=== PATIENT | female | born 1970 | race Caucasian/White ===

== ENCOUNTER 2023-04-25 01:04 | Emergency (ER) | payer MEDICARE, MEDICAID, SELFPAY ==
--- NOTE | ~2023-04-25 | XR_ITS ---
EXAMINATION: XR KNEE, LEFT CLINICAL INFORMATION: Fall, pain COMPARISON: None available. TECHNIQUE: Four views of the left knee. FINDINGS: There is a loss of tricompartment joint space without loose bodies or bony erosive changes. No visible acute fracture or dislocation seen. There is mild medial compartment periarticular spurring. The soft tissues are normal. XR/XR knee LT 4V IMPRESSION: Mild degenerative changes left knee. No visible acute fracture or dislocation seen.
[2023-04-25 01:48] VITALS: BP 122/84; BP 124/82; PULSE 101; PULSE 115; RESP 14; TEMP 36.7; O2SAT 94; O2SAT 95; BMI 20.8
[2023-04-25 06:05] VITALS: BP 128/74; BP 135/77; PULSE 77; RESP 18; TEMP 36.9; O2SAT 99
[2023-04-25 06:37] VITALS: BP 161/93; PULSE 109; TEMP 36.7; O2SAT 95
--- NOTE | 2023-04-25 07:02 | ED.GENADULT ---
HPI - General Adult General Chief complaint: Fall Stated complaint: L KNEE LAC/LEG PAIN S/P FALL, ETOH USE Time Seen by Provider: 04/25/23 06:28 Source: patient, EMS and RN notes reviewed Mode of arrival: EMS Limitations: no limitations History of Present Illness HPI narrative: Patient is a 52-year-old female presenting to the emergency department with left knee pain and abrasion after a fall. She reports having 3 alcoholic drinks last night prior to her fall. She reports that while she was ambulating her right knee buckled causing her to fall. She states that she tripped forward landing on her left knee and hands. She denies hitting her head, denies loss of consciousness. She is not anticoagulated. She reports left anterior knee pain and abrasion. Reports she has been able to ambulate since the fall. She denies any headache, denies any vision changes. Denies any neck or back pain. MD complaint: Left knee pain Onset (ago): hour(s) Location: lower extremity Radiation: non-radiation Severity: moderate Quality: dull Pain Consistency: constant Relieving factors: rest Exacerbating factors: movement Associated symptoms: denies other symptoms Treatments prior to arrival: none Related Data Allergies Allergy/AdvReac Type Severity Reaction Status Date / Time Penicillins AdvReac Mild Abdominal Verified 04/25/23 01:56 Pain Review of Systems Review of Systems: As per HPI. Yes all other systems are reviewed and are negative Constitutional: Constitutional: Reports as per HPI [facility] Social History Social History Alcohol intake: never Smoked in Last 30 Days: No Use of substances other than those prescribed or required for medical reasons: No Advance Directives: No Patient : No Physical Exam ED Vital Signs: Vital Signs - 24 hr 04/25/23 01:48 04/25/23 06:05 04/25/23 06:05 Temperature 98.0 F 98.4 F 98.4 F Pulse Rate 101 H 77 77 Respiratory Rate 14 18 18 Blood Pressure 122/84 135/77 128/74 Pulse Oximetry 94 99 Oxygen Delivery Method Room Air Room Air 04/25/23 06:37 Temperature 98.0 F Pulse Rate 109 H Respiratory Rate Blood Pressure 161/93 H Pulse Oximetry 95 Oxygen Delivery Method Room Air BMI result Body Mass Index 20.8 Vital signs have been reviewed and appear to be correct. Blood pressure normal. Heart rate normal this am, most recently mildly tachycardic however, patient reports feeling anxiety regaring obtaining a ride home in a timely fashion. Respiratory rate normal. Temperature normal. Oxygen saturation normal. Const General: cooperative, healthy appearing, no acute distress and awake Orientation/consciousness: oriented to person, oriented to place, oriented to time and patient oriented x3 Limitations: no limitations [facility] Head: Yes normal to inspection, Yes normocephalic, Yes atraumatic, No Mark's sign, No contusion, No raccoon eyes, No scalp tenderness and No periorbital ecchymosis Ears: external ears normal and TM's normal bilaterally General nose exam: Normal external nose present, Normal nares present and Normal septum present Face and sinus: Yes normal facial exam and Yes face symmetric Mouth: Normal oral and palatal mucosa present, oropharynx normal and moist mucous membranes Throat: Yes posterior oropharynx normal and Yes uvula midline Eyes Pupils: Equal, round and reactive pupils present EOM: EOMs intact bilaterally Neck Neck: Yes normal visual inspection, Yes full ROM and Yes supple Resp Effort & Inspection: normal respiratory effort and able to speak in complete sentences Auscultation: clear to auscultation bilaterally Cardio Rate: regular rate Rhythm: regular rhythm Heart sounds: S1 normal heart sound present and S2 normal heart sound present GI Palpation (GI): Soft to palpation and nontender Auscultation: normoactive bowel sounds General: Yes no CVA tenderness Back/Spine/Pelvis Back: no CVA tenderness and No back tenderness Cervical Spine: cervical ROM normal, No Cervical spine tenderness and No step off deformity Thoracic/Lumbar Spine: thoracic and lumbar spine normal to inspection, No thoracic spinal tenderness and No lumbar spinal tenderness Skin General skin exam: elasticity normal and turgor normal Trauma: abrasion (superficial abrasion to left anterior knee) Neuro General: oriented to person, oriented to place, oriented to time, patient oriented x3, gait normal, tone normal, moves all extremities, Normal light touch and pain sensation, no focal motor deficits and CN's II-XI intact bilaterally Cranial nerves: Yes Equal, round and reactive pupils present Cognition (Neuro): normal cognition Motor exam (neuro): 5/5 motor strength present throughout, Normal motor muscle tone present throughout and Motor abnormalities not present Sensory Exam: Normal double simultaneous stimulation for sensation Extrem General: Yes full ROM, Yes no pedal edema and Yes no calf tenderness Right upper extremity: Extremity exam: right hand Details: normal to inspection Left upper extremity: hand Details: normal to inspection Left lower extremity: full ROM, knee Details: tenderness Location: of the patella, knee ligament exam normal and abrasion knee anterior Details: multiple (superficial); no lacerations, no crepitus, no penetrating wound, no deformity and no unusual warmth and foot Details: vascular exam Details: dorsalis pedis pulse present and posterior tibial pulse present Psych Mental Status: mental status grossly normal Affect: normal affect Thought process: Normal thought process present Medical Decision Making Medical Decision Making MDM Narrative: Patient is a 52-year-old female presenting to the emergency department with left knee pain and abrasion after a fall. On exam patient is awake, A&O x3, normal neurological findings without focal deficits, left knee with full range of motion, minor superficial abrasions to anterior knee without surrounding erythema or calor, no drainage or discharge. No evidence of fracture or dislocation on x-ray. Patient ambulating in the emergency department with steady gait. Considered CT head and neck but deferred as patient denies hitting head, has normal neurological exam, no evidence of head injury, denies any head, neck, or back pain. Feel patient is stable for discharge home at this time. Instructed patient to cleanse area daily with gentle soap and water, assess for signs of infection, follow up with her PCP this week. Return precautions discussed at bedside, patient verbalized agreement with plan. Differential Diagnosis Differential Diagnoses: The differential diagnosis associated with the presentation includes Left knee contusion, abrasion, fracture Independent Interpretation I performed an independent interpretation of an: Plain X-Ray Interpretation: I independently reviewed the x-ray and agree with the radiologist's interpretation. Radiology Impression Discussion of test interpretation with radiology: I have reviewed the radiologist's reading. Radiologist Impression: XR/XR knee LT 4V IMPRESSION: Mild degenerative changes left knee. No visible acute fracture or dislocation seen. External Record Review External record reviewed: Inpatient record, Office record and Outpatient record Discharge Plan Discharge Clinical Impression: Contusion of knee, left, Abrasion of knee, left Patient Disposition: Home, Self-Care Instructions: Contusion in Adults (ED), Abrasion (ED) Additional Instructions: Keep your knee clean, wash gently with mild soap and water, assess daily for signs of infection. Follow-up with your primary care provider this week. Return to the emergency department if you develop worsening pain, new redness or warmth, fever 100.4? F or greater, weakness, numbness or tingling, or any other concerning symptoms.
--- NOTE | 2023-04-25 07:52 | PC.NURSE ---
patient continuously ringing wanting to discharge to home, provider was notified and discharge papers put in for patient. pt then stated that she had no ride and wanted the hospital to provide ambulance transportation for her, pt was notified that she did not have qualifications to have an ambulance transport her home, pt then asked for a bus pas or lyft paid for by hospital to go home, pt again notified that we had no bus passes available at this time and we could call a lyft for her if she had the money to pay, pt claims she had no money to pay for her own ride home. pt then was able to get a uber ride paid for by her brother, patient asked to have a wheelchair ride out to triage area because her abraision still hurt- pt was brought to triage to wait for her uber ride which is being paid for by her brother.
== END 2023-04-25 07:57 | disposition home or self-care (01) ==
PROVIDERS: Emergency Provider Emergency Medicine; PCP Nurse Practitioner Family
DX: S80.02XA Contusion of left knee, initial encounter (principal); S80.212A Abrasion, left knee, initial encounter; W18.30XA Fall on same level, unspecified, initial encounter; Y93.9 Activity, unspecified; Y92.9 Unspecified place or not applicable; Y99.9 Unspecified external cause status
CPT/HCPCS: 73564; 99283; 99284

== ENCOUNTER 2024-01-20 08:52 | Outpatient (AMB) | payer MEDICAID, SELFPAY ==
[2024-01-20 09:09] VITALS: BP 123/81; PULSE 95; RESP 18; O2SAT 97; BMI 24.3
--- NOTE | 2024-01-20 09:09 | A.OFFVIS_ITS ---
Intake Vital Signs 01/20/24 09:09 Height 5 ft 5 in Weight 146 lb 4 oz BMI 24.3 BP 123/81 Blood Pressure Location Lt brachial Position Sitting Respiration 18 Pulse 95 Pulse Source Pulse Oximeter Pulse Oximetry (%) 97 Oxygen Delivery Method Room Air Intake Visit Reasons: FAILED BACK SYNDROME Allergies Penicillins Adverse Reaction (Mild, Verified 01/20/24 09:03) Abdominal Pain HPI HPI Comments History of Present Illness Details Maris is a very pleasant 53-year-old female who presents the office today for evaluation management of her chronic lower back pain Patient was formally being treated at [facility] pain management for proximally 15 years. She had received injections, a spinal cord stimulator trial and was on the chronic opioid program. Last year she discontinued treatment and has been referred here for evaluation management. Patient reports pain across her lower back and down her legs to her feet. History of 3 back surgeries includin05/2007 L4 through S1 fusion with anterior and posterior approach 02/2007 L5 through S1 microdiskectomy 07/2009 re-exploration of left L4-5 with decompression Patient reports that she did physical therapy many years ago, she continues with home exercise program and reports that without doing the exercises she would not be able to move. She is using ice and heat that helps a little bit. She is currently taking Tylenol and duloxetine with minimal improvement. Unable to take nonsteroidal anti-inflammatory medications due to history of erosive esophagitis. She does report spinal cord stimulator trial in 2008 that did not provide her any benefit. She is unsure which device they utilized. She has tried gabapentin in the past but it had and a tolerable side effects. She is currently taking amitriptyline at bedtime that allows her to sleep but during the day she is very uncomfortable. She has never been to the chiropractor or had acupuncture or massage. Patient endorses numbness and tingling down the right leg that has been present for greater than 10 years, she states that this started after surgery. She has not had any recent evaluation by Neurosurgery. She states she had an MRI October 2022, records have been requested but are not available for review today. She currently use a walker for ambulation. She is on disability due to her pain. Patient denies red flag symptoms including new loss of bowel, bladder or saddle anesthesia. Patient denies current use of blood thinners. She endorses 1/4 pack a day smoking, is working on quitting. She reports social alcohol use, ?a couple beers? once per week She currently uses THC gummies that she obtains from the dispensary Patient also has some right hip pain, she states that she needs a hip replacement. She has not under care of orthopedics at this time but she would like a referral for evaluation. [facility] Social History Alcohol intake: never Review of Systems Const All systems reviewed & are unremarkable except as noted in HPI and below Physical Exam Vital Signs: Last Vital Signs Pulse 95 01/20/24 09:09 Resp 18 01/20/24 09:09 BP 123/81 01/20/24 09:09 Pulse Ox 97 01/20/24 09:09 Oxygen Delivery Method Room Air 01/20/24 09:09 BMI result Body Mass Index 24.3 General: awake, alert, oriented. Answers questions appropriately. Fully engaged in examination. Skin: warm, dry, intact HEENT: Normocephalic. Hearing intact. Cardiac: External chest normal in appearance. Respiratory: No cough, audible wheezing or stridor. Abdomen: without gross distension. MS: No obvious swelling or deformities. Able to stand on bilateral tiptoes and bilateral heels.? Able to transition from sit to stand unassisted. Tenderness or midline lumbar vertebrae and lumbar paraspinal muscles Nontender over bilateral PSIS Bilateral lower extremity spasticity SLR positive bilaterally Negative clonus Neurological: Oriented to person, place, time and situation. Thought process intact. Ambulates with the use of a walker Psychiatric: Appropriate mood and affect. Good judgment and insight. Results Reviewed Results Reviewed: Recent MRI results from [facility] have been requested for review Assessment & Plan Assessment & Plan (1) Post laminectomy syndrome: Code(s): M96.1 - Postlaminectomy syndrome, not elsewhere classified (2) Right hip pain: Code(s): M25.551 - Pain in right hip (3) Thoracic back pain: Code(s): M54.6 - Pain in thoracic spine Plan Maris is a very pleasant 53-year-old female who presented to the office today f or evaluation management of her chronic lower back pain. History, physical exam and provocative testing consistent with post laminectomy syndrome Patient has exhausted conservative therapy including PT, home exercise program, Tylenol, heat, ice, previous attempts at injections and prescription medications. X-rays thoracic and lumbar spine ordered for evaluation Baclofen 5 mg p.o. t.i.d. as needed for muscle spasticity Discussed at length the patient's diagnosis and options for treatment including diagnostic interventional testing, epidural steroid injections, peripheral nerve stimulation with Sprint, RFA and more permanent neuromodulation. Informational pamphlets provided. Given patient's symptoms and post-laminectomy syndrome diagnosis will plan for spinal cord stimulator trial with [employer]. Patient is aware she will need mental health clearance prior to any implantable devices per insurance requirements, [facility] pamphlet was given to the patient. Patient advised she will be called by [facility] to schedule this evaluation. Once we receive it is clearance we will schedule her for the spinal cord stimulator trial. Chronic Right hip pain: X-ray right hip ordered for eval Referral placed for Orthopedics All questions and concerns have been answered and patient agrees with the plan. Follow up after injections and sooner if needed. Orders: Orders XR hip RT min 2V Today M25.551 - Pain in right hip XR lumbar spine 4V min Today M96.1 - Postlaminectomy syndrome, not elsewhere classified XR thoracic spine 3V Today M54.6 - Pain in thoracic spine Referrals Orthopedics Referral M25.551 - Pain in right hip Medications: New baclofen 5 mg PO TID 90 tabs 1RF Coding Level of Care Code New Pt Level 4 (06280) Diagnoses Post laminectomy syndrome M96.1 Right hip pain M25.551 Thoracic back pain M54.6
== END 2024-01-20 09:39 | disposition home or self-care (01) ==
PROVIDERS: PCP Nurse Practitioner Family; Referring Provider Nurse Practitioner Family; Visit Provider Registered Nurse Emergency
DX: M96.1 Postlaminectomy syndrome, not elsewhere classified (principal); M25.551 Pain in right hip; M54.6 Pain in thoracic spine
CPT/HCPCS: 99204

== ENCOUNTER → 2024-01-20 08:52 | Outpatient (BNVA) | payer MEDICARE, MEDICAID, SELFPAY | PROVIDERS: PCP Nurse Practitioner Family; Referring Provider Nurse Practitioner Family; Visit Provider Registered Nurse Emergency | DX: M96.1 Postlaminectomy syndrome, not elsewhere classified (principal); M25.551 Pain in right hip; M54.6 Pain in thoracic spine | CPT/HCPCS: 99212 ==

== ENCOUNTER 2024-02-22 07:29 | Outpatient (REF) | payer MEDICARE, MEDICAID, SELFPAY ==
--- NOTE | ~2024-02-22 | XR_ITS ---
EXAMINATION: XR HIP, RIGHT CLINICAL INFORMATION: Pain in the right hip. COMPARISON: 05/28/2013. TECHNIQUE: AP view of the pelvis and frog-lateral view of the right hip. FINDINGS: The bones are diffusely demineralized. Redemonstration of fixation hardware and evidence of previous disc surgery in the imaged lower lumbar spine. Degenerative changes with hypertrophic change in the bilateral sacroiliac joints. Moderate degenerative changes on single AP view of the left hip with joint space narrowing and hypertrophic change. Pubic symphysis is maintained. Severe degenerative changes right hip with superolateral obliteration of the joint space, remodeling of subjacent articular surfaces and hypertrophic change/sclerosis. Deformity of the right femoral neck and head, possibly related to prior trauma and difficult to evaluate on views provided. XR/XR hip RT min 2V IMPRESSION: 1. Interval progression of now severe degenerative changes of right hip since exam of 05/28/2013. Interval deformity of the right femoral neck and head, possibly related to prior trauma, difficult to evaluate on views provided. 2. Moderate degenerative changes in the left hip. 3. Correlation with clinical exam and possible additional imaging with MRI recommended.
== END 2024-02-22 07:30 | disposition home or self-care (01) ==
LOC: HO.HOSX 07:29
PROVIDERS: Visit Provider Orthopaedic Surgery
DX: M25.551 Pain in right hip (principal)
CPT/HCPCS: 73502; 99202

== ENCOUNTER 2024-02-22 09:48 | Outpatient (AMB) | payer MEDICARE, MEDICAID, SELFPAY ==
[2024-02-22 10:01] VITALS: BMI 24.3
--- NOTE | 2024-02-22 10:01 | MHC.OFFVIS ---
Vital Signs 02/22/24 10:01 Height 5 ft 5 in Weight 146 lb BMI 24.3 Intake Visit Reasons: [employer]-Pain in right hip Intake Note: Maris is a 53 year old female who presents as a new patient with Right hip pain. Patient reports her pain has been going on for about 10 years and is a 10 on the 1-10 pain scale. She states she is using tylenol, muscle relaxer, ice, lidocaine patches and heat with no relief. She denies injury, injections and surgery. She does walk with a walker. At this point the patient's right hip pain is interfering with her activities of daily living and her ability to sleep well through the night. Allergies Penicillins Adverse Reaction (Mild, Verified 02/22/24 10:25) Abdominal Pain Medication List - Last Reconciled 02/22/24 by Gianluca Mauro MD albuterol sulfate 90 mcg/actuation (Ventolin HFA) 2 puffs inhalation Q6H PRN amitriptyline 75 mg PO BEDTIME amlodipine 5 mg PO DAILY aripiprazole mg PO baclofen 5 mg PO TID doxepin 3 mg PO BEDTIME propranolol 20 mg PO BID quetiapine 200 mg PO BEDTIME PFS Surgical History History of back surgery (~2008) History of back surgery (~2006) History of back surgery (~2007) Social History Alcohol intake: never Physical Exam Vital Signs: BMI result Body Mass Index 24.3 Const Other: Well-nourished well-developed very friendly female awake alert and oriented x3 in no acute distress Extrem Other: Bilateral lower extremity examination shows good capillary refill, no skin lesions noted, normal sensation light touch Right hip examination shows decreased range of motion when compared to her left hip, pain with range of motion, no tenderness over her bursa Results Reviewed Results Reviewed: X-rays of the patient's right hip taken today show end-stage degenerative joint disease with [id number] arthritis, subchondral sclerosis, osteophyte formation, no acute bony abnormalities Assessment & Plan Assessment & Plan (1) Right hip pain: Code(s): M25.551 - Pain in right hip Category: Medical Plan Ms. Varner presents with right hip pain due to end-stage degenerative joint disease. I had a lengthy discussion patient regarding treatment options at this point the patient has failed continued non operative treatments. The risks and benefits of right total hip replacement surgery were discussed at length with the patient. The patient wishes to proceed with surgery. Thus, I will have her see my partner, Dr. Smallwood, who performs this type of surgery. She will follow-up as instructed. Feel free to call me at any time should questions regarding her orthopedic management arise. Thank you very much for asking me to see this very friendly patient. I spent 22 minutes in reviewing the patient's records and imaging studies, seeing the patient and documenting in the medical record. Orders: Orders XR hip RT min 2V Today M25.551 - Pain in right hip Coding Level of Care Code New Pt Level 2 (65363) Diagnoses Right hip pain M25.551
== END 2024-02-22 10:42 | disposition home or self-care (01) ==
PROVIDERS: PCP Nurse Practitioner Family; Visit Provider Orthopaedic Surgery
DX: M25.551 Pain in right hip (principal)
CPT/HCPCS: 99202

== ENCOUNTER 2024-06-07 12:56 | Outpatient (AMB) | payer MEDICARE, MEDICAID, SELFPAY ==
--- NOTE | 2024-06-07 13:17 | MHC.OFFVIS ---
Intake Visit Reasons: OV - Right Hip OA - Discuss FEDERICO per Zunilda Intake Note: Maris is a 53 year old female who presents today as she was referred by Dr. Mauro for Right Hip OA to discuss FEDERICO. Allergies Penicillins Adverse Reaction (Mild, Verified 06/07/24 13:20) Abdominal Pain HPI HPI OV - Right Hip OA - Discuss FEDERICO per Zunilda: Details: 53 yo with right hip pain since 2018. She has ongoing right hip pain. She is unable to walk without a walker and even with a walker she has severe pain. She cannot move her right hip. The quality of her life is poor and she cannot perform ADLs. She has severe hip OA. [facility] Surgical History History of back surgery (~2008) History of back surgery (~2006) History of back surgery (~2007) Social History Alcohol intake: never Physical Exam Extrem Other: external rotation of right hip with minimal rotation. Severe gait antalgia and shortening. Results Reviewed Results Reviewed: I personally reviewed relevant radiographs. Severe right hip OA with near ankylosis of joiint Assessment & Plan Assessment & Plan (1) Arthritis of right hip: Code(s): M16.11 - Unilateral primary osteoarthritis, right hip Category: Medical Plan: Right hip OA that is severe with minimal function. I recommend arthroplasty. I discussed this with her. I discussed the risks benefits and alternatives including but not limited to the risk of pain, infection, stiffness, need for further surgery as well as potential medical complications such as blood clots, pulmonary embolism and cardiac complications. She has severe disease with shortening and the possibility of nerve injury and incomplete length synagogue. We will begin with our nurse navigation. She expressed understanding Coding Level of Care Code Est Pt Level 4 (41362) Diagnoses Arthritis of right hip M16.11
== END 2024-06-07 13:55 | disposition home or self-care (01) ==
PROVIDERS: PCP Nurse Practitioner Family; Visit Provider Orthopaedic Surgery
DX: M16.11 Unilateral primary osteoarthritis, right hip (principal)
CPT/HCPCS: 99214

== ENCOUNTER → 2024-06-07 12:56 | Outpatient (BNVA) | payer MEDICARE, MEDICAID, SELFPAY | PROVIDERS: PCP Nurse Practitioner Family; Visit Provider Orthopaedic Surgery | DX: M16.11 Unilateral primary osteoarthritis, right hip (principal) | CPT/HCPCS: 99212 ==